=== PATIENT | female | born 1955 | race Caucasian/White ===

== ENCOUNTER → 2016-12-06 | Outpatient (CLI) | payer MEDICARE, BC ==
[~2016-12-06] MED LIST: ALPRAZOLAM2 MG PO; AMBIEN 10MG10 M1 PO; AMBIEN 10MG10 MG PO; AMBIEN10 MG PO; ASACOL HD800 MG PO; ASPIRIN 32325 MG/TAB PO; ASPIRIN E.C. 8181 MG PO; ATIVAN 2MG2 MG PO; ATIVAN2 MG PO; AVEENO ANTI-IT118 ML TP; C-PAP MACHINE; CALCIUM 600-D 61 TAB PO; CALCIUM600 M1 PO; CELEBREX200 MG PO; CEPHALEXIN500 M1 PO; COLACE 100100 MG/CAP PO; DEPLIN15 MG PO; DEPLIN7.5 MG PO; DOXEPIN100 MG; DOXYCYCLINE 10100 MG PO; FERREX 150150 MG PO; FISH OIL1 IU PO; FOLIC ACID 40400 MCG PO; FOLIC ACID0.4 MG PO; FOLIC ACID0.8 MG PO; GEODON 40MG40 MG PO; GEODON40 MG PO; GEODON80 MG PO; HUMIRA40 MG/0.1 SC; IMODIUM 2MG CAPS2 MG PO; L-METHYLFOLATE15 MG PO; MASON NATURAL1200 MG PO; MINIPRESS2 MG PO; MIRALAX PA17 GM/Dose PO; MOBIC15 MG PO; MONODOX100 PO; MULTIPLE VITAMI1 CAP PO; NITROSTAT0.4 MG/TAB SL; OCUVITE1 TA1 PO; PENTASA500 MG PO; PERCOCET 325 MG1 TA3 PO; PERCOCET 500 MG1 TAB PO; PRAZOSIN HCL1 MG PO; PRILOSEC 20MG20 MG PO; PRISTIQ 50 MG T50 MG PO; PRISTIQ50 M1 PO; PROTONIX20 MG PO; REFRESH DRY EYE15 ML OP; REFRESH PM1 OI1 OP; RESTASIS0.05% OP; ROZEREM 8MG TABL8 MG PO; ROZEREM8 MG PO; SAPHRIS10 MG SL; SAPHRIS5 MG; SINEQUAN 1100 MG/CAP PO; TOPROL XL 50MG50 MG PO; TOPROL XL50 MG PO; VITAMIN C500 MG PO; VITAMIND3 5000 PO; XANAX2 MG PO; ZANTAC 300300 MG PO; ZOCOR 40MG40 MG PO; ZOCOR40 MG PO; [UNRECOGNIZED DRUG - OTHER] OU; [UNRECOGNIZED DRUG - OTHER] PO
== END ==
LOC: COL.LAB 13:59
DX: Z11.59 Encounter for screening for other viral diseases (principal)

== ENCOUNTER → 2017-02-16 | Outpatient (CLI) | payer MEDICARE, BC | LOC: COL.LAB 08:44 | DX: Z11.59 Encounter for screening for other viral diseases (principal) ==

== ENCOUNTER → 2017-07-22 | Outpatient (CLI) | payer MEDICARE, BC | LOC: COL.RAD 12:26 | DX: H47.013 Ischemic optic neuropathy, bilateral (principal) | CPT/HCPCS: Q9967 ==

== ENCOUNTER → 2018-03-02 | Outpatient (CLI) | payer MEDICARE, BC ==
[~2018-03-02] MED LIST changes: +ANTIVERT 25MG25 MG PO; +NEURONTIN300 MG/CAP PO; +PRIL40 PO; +PROAMATINE 5MG T5 MG PO; +THERATEARS 0.60.6 ML OP
== END ==
LOC: COL.RAD 10:30
DX: S82.832A Other fracture of upper and lower end of left fibula, initial encounter for closed fracture (principal); M19.072 Primary osteoarthritis, left ankle and foot; M20.12 Hallux valgus (acquired), left foot

== ENCOUNTER 2018-05-03 08:00 | Outpatient (RCR) | payer MEDICARE, BC | END 2018-05-07 | disposition home or self-care (01) | LOC: WSPT | DX: S82.65XD Nondisplaced fracture of lateral malleolus of left fibula, subsequent encounter for closed fracture with routine healing (principal); S93.602D Unspecified sprain of left foot, subsequent encounter; S93.402D Sprain of unspecified ligament of left ankle, subsequent encounter; R29.898 Other symptoms and signs involving the musculoskeletal system; W10.1XXD Fall (on)(from) sidewalk curb, subsequent encounter; Z96.653 Presence of artificial knee joint, bilateral | CPT/HCPCS: G8978-GP; G8979-GP ==

== ENCOUNTER 2018-08-14 08:00 | Outpatient (RCR) | payer MEDICARE, BC | END 2018-08-16 | disposition home or self-care (01) | LOC: WSPT | DX: S82.65XD Nondisplaced fracture of lateral malleolus of left fibula, subsequent encounter for closed fracture with routine healing (principal); R29.898 Other symptoms and signs involving the musculoskeletal system; R29.6 Repeated falls | CPT/HCPCS: G8978-GP; G8979-GP ==

== ENCOUNTER 2018-08-24 17:00 | Emergency (ER) | payer MEDICARE, BC ==
[2007-09-14 14:40] VITALS: BP 140/80
[~2018-08-24] VITALS: Ht 177.8 cm; Wt 91.8 kg
[2018-08-24 17:09] VITALS: TEMP 98.4
[2018-08-24] MEDS ORDERED: LYRICA200 MG PO ×2 (17:33→17:34)
[2018-08-24] MEDS ORDERED: ASPIRIN 32325 MG/TAB PO (17:33)
[2018-08-24] MEDS ORDERED: HUMIRA40 MG/0.8 SQ (17:37)
[2018-08-24] MEDS ORDERED: PRIL40 PO (17:38)
[2018-08-24] MEDS ORDERED: XIIDRA1 EACH OP (17:46)
[2018-08-24 18:05] LABS: COLLECTION METHOD CLEAN CATCH
[2018-08-24 18:10] LABS: BASO % 0.6 % (0.0-2.0); EOS # 0.1 (0.0-0.7); EOS % 1.2 % (0-4.0); GRAN # 2.4 (1.4-6.5); GRAN % 49.2 % (42.2-75.2); HEMATOCRIT 43.7 % (37.0-47.0); HEMOGLOBIN 14.5 g/dl (12.5-16.0); LYMPH # 1.9 (1.2-3.4); LYMPH % 39.8 % (20.0-51.0); MEAN CELL VOLUME 94 fl (80.0-100.0); MEAN CORPUSCULAR HEMOGLOBIN 31 pg (27.0-31.0); MEAN CORPUSCULAR HGB CONC 33 g/dl (33.0-37.0); MEAN PLATELET VOLUME 10.9 fl (7.4-10.4); MONO # 0.4 (0.1-0.6); PLATELET COUNT 167 K/mm3 (130-400); RED BLOOD COUNT 4.67 M/mm3 (4.10-5.30); REDCELL DISTRIBUTION WIDTH-CV 12.8 % (11.5-14.5)
[2018-08-24 18:11] LABS: MUCOUS Present /lpf; PH 5 (5-8); SQUAMOUS EPITHELIAL None Seen /hpf; URINE APPEARANCE Clear; URINE BACTERIA Rare /hpf; URINE BILIRUBIN Negative (NEGATIVE); URINE BLOOD Negative (NEGATIVE); URINE COLOR Yellow; URINE GLUCOSE Negative (NEGATIVE); URINE KETONE Negative (NEGATIVE); URINE LEUKOCYTE ESTERASE Negative (NEGATIVE); URINE NITRATE Negative (NEGATIVE); URINE PROTEIN(semi-quant) Negative (NEGATIVE); URINE RBC 0-2 /hpf; URINE UROBILINOGEN Negative (NEGATIVE)
[2018-08-24 18:28] LABS: ALANINE AMINOTRANSFERASE 10 U/L (9-52); ALBUMIN 4.3 gm/dL (3.5-5.0); ALKALINE PHOSPHATASE 64 U/L (50-136); ANION GAP 9 mmol/L (7-16); AST,SGOT 37 U/L (15-37); BILIRUBIN,TOTAL 0.2 mg/dL (0.0-1.0); BLOOD UREA NITROGEN 17 mg/dL (7-17); C-REACTIVE PROTEIN < 0.5 mg/dL (0.0-0.9); CALCIUM 9.6 mg/dL (8.4-10.2); CARBON DIOXIDE 28 mmol/L (22-30); CHLORIDE 104 mmol/L (98-107); CREATININE, serum 0.89 mg/dL (0.52-1.25); GLUCOSE 105 mg/dL (74-106); POTASSIUM 4.5 mmol/L (3.4-5.0); SODIUM 141 mmol/L (137-145); TOTAL PROTEIN 7.8 gm/dL (6.4-8.2)
[2018-08-24] MEDS ORDERED: CEPHALEXIN500 M1 PO (18:34)
[2018-08-24] MEDS ORDERED: DOXYCYCLINE HY100 MG PO (18:34)
[2018-08-24] MEDS ORDERED: PERCOCET 325 MG1 TA2 PO (18:34)
[2018-08-24 18:35] LABS: ERYTHROCYTE SEDIMENTATION RATE 1 mm/hr (0-30)
[2018-08-24 18:50] VITALS: BP 133/84; PULSE 60
== END 2018-08-24 18:50 | disposition home or self-care (01) ==
LOC: COL.ER 17:00
PROVIDERS: Physician Assistant
DX: M79.89 Other specified soft tissue disorders (principal); G62.9 Polyneuropathy, unspecified; Z90.89 Acquired absence of other organs; Z95.1 Presence of aortocoronary bypass graft

== ENCOUNTER → 2018-09-04 | Outpatient (CLI) | payer MEDICARE, BC ==
[~2018-09-04] MED LIST changes: +DOXYCYCLINE HY100 MG PO; +HUMIRA40 MG/0.8 SQ; +LYRICA200 MG PO; +PERCOCET 325 MG1 TA2 PO; +XIIDRA1 EACH OP
[2018-09-04 16:31] LABS: URIC ACID 4.3 mg/dL (2.5-6.2)
[2018-09-04 16:33] LABS: C-REACTIVE PROTEIN < 0.5 mg/dL (0.0-0.9)
[2018-09-05 02:25] LABS: RHEUMATOID FACTOR-SCREEN <15 IU/mL (0-29)
[2018-09-06 01:41] LABS: ANA SCREEN with REFLEX Negative (Negative)
== END ==
LOC: COL.LAB 15:34
PROVIDERS: Orthopaedic Surgery Sports Medicine
DX: M79.671 Pain in right foot (principal); M79.672 Pain in left foot

== ENCOUNTER 2018-09-14 15:00 | Emergency (ER) | payer MEDICARE, BC ==
[2007-09-14 14:40] VITALS: BP 140/80
[~2018-09-14] VITALS: Ht 177.8 cm; Wt 90.9 kg
[2018-09-14 15:08] VITALS: TEMP 97.9
[2018-09-14] MEDS ORDERED: HUMIRA40 MG/0.8 SQ (15:26)
[2018-09-14 16:00] LABS: BASO % 0.7 % (0.0-2.0); EOS # 0.1 (0.0-0.7); EOS % 1.8 % (0-4.0); GRAN # 2.5 (1.4-6.5); GRAN % 54.3 % (42.2-75.2); HEMATOCRIT 41.5 % (37.0-47.0); HEMOGLOBIN 13.9 g/dl (12.5-16.0); LYMPH # 1.6 (1.2-3.4); LYMPH % 35.1 % (20.0-51.0); MEAN CELL VOLUME 93 fl (80.0-100.0); MEAN CORPUSCULAR HEMOGLOBIN 31 pg (27.0-31.0); MEAN CORPUSCULAR HGB CONC 34 g/dl (33.0-37.0); MEAN PLATELET VOLUME 10.4 fl (7.4-10.4); MONO # 0.4 (0.1-0.6); MONO % 7.9 % (1.7-9.3); PLATELET COUNT 155 K/mm3 (130-400); RED BLOOD COUNT 4.47 M/mm3 (4.10-5.30); REDCELL DISTRIBUTION WIDTH-CV 12.8 % (11.5-14.5)
[2018-09-14 16:10] LABS: CALCIUM 9.4 mg/dL (8.4-10.2); CREATININE, serum 0.88 (0.52-1.25); POTASSIUM 3.8 mmol/L (3.4-5.0)
[2018-09-14] MEDS ORDERED: PERCOCET 325 MG1 TAB PO (17:00)
[2018-09-14] MEDS ORDERED: FLEXERIL 1010 MG/TAB PO (17:00)
[2018-09-14] MEDS ORDERED: MEDROL 4MG DOSPA4 MG PO (17:00)
[2018-09-14 17:42] VITALS: BP 126/83; PULSE 60
== END 2018-09-14 17:44 | disposition home or self-care (01) ==
LOC: COL.ER 15:00
PROVIDERS: Emergency Medicine
DX: S33.9XXA Sprain of unspecified parts of lumbar spine and pelvis, initial encounter (principal); S70.01XA Contusion of right hip, initial encounter; M54.5 Low back pain; I25.10 Atherosclerotic heart disease of native coronary artery without angina pectoris; Z95.1 Presence of aortocoronary bypass graft; I10 Essential (primary) hypertension; G89.29 Other chronic pain; Z79.82 Long term (current) use of aspirin; W19.XXXA Unspecified fall, initial encounter; Y92.009 Unspecified place in unspecified non-institutional (private) residence as the place of occurrence of the external cause
CPT/HCPCS: J1170; J2060; J2405; J7030; Q9967

== ENCOUNTER 2018-09-20 12:37 | Day surgery (SDC) | payer MEDICARE, BC ==
[2007-09-14 14:40] VITALS: BP 140/80
[~2018-09-20] VITALS: Ht 177.8 cm; Wt 92.5 kg
[~2018-09-20 12:37] MED LIST changes: +FLEXERIL 1010 MG/TAB PO; +MEDROL 4MG DOSPA4 MG PO; +PERCOCET 325 MG1 TAB PO
[2018-09-20] MEDS ORDERED: TOPROL XL 50MG50 MG PO (13:24)
[2018-09-20 14:48] VITALS: BP 150/103; PULSE 60; TEMP 98.1
[2018-09-20 16:45] VITALS: BP 158/93; PULSE 60; TEMP 97.5
--- NOTE | 2018-09-20 16:45 | NUR ---
The patient arrived back to [facility] from the [facility] suite at this time. The patient appears drowsy but ambulated from the cart to the recliner in her room with the stand by assistance of two nurses. The patient's post procedure vital signs were started at this time. The patient requests to try some diet cola at this time. Call light is within reach. Will continue to monitor the patient.
[2018-09-20 17:00] VITALS: BP 133/75; PULSE 71
--- NOTE | 2018-09-20 17:00 | NUR ---
The patient appears to be tolerating the cola well and requests to try a muffin at this time. Vital signs appear stable. Will continue to monitor the patient.
[2018-09-20 17:15] VITALS: BP 168/91; PULSE 60
--- NOTE | 2018-09-20 17:15 | NUR ---
The patient's IV to her right anecubital was removed and a pressure dressing was applied to the site. The nurse instructed the patient to get dressed and notify the staff when she is ready to be escorted out.
--- NOTE | 2018-09-20 17:25 | NUR ---
Discharge instructions were reviewed with the patient at this time. She verbablized understanding and any questions were answered at this time. The patient is dressed and ready to be escorted out.
--- NOTE | 2018-09-20 17:30 | NUR ---
The patient was escorted out via wheelchair to a private vehicle by ANJANA Gallagher. The patient's belongings and discharge paperwork were sent with her. The patient's friend, Rosa, is present to drive her home.
== END 2018-09-20 17:30 | disposition home or self-care (01) ==
LOC: SDCO 12:37
DX: K21.9 Gastro-esophageal reflux disease without esophagitis (principal); I25.10 Atherosclerotic heart disease of native coronary artery without angina pectoris; I50.1 Left ventricular failure, unspecified; Z95.5 Presence of coronary angioplasty implant and graft; G47.33 Obstructive sleep apnea (adult) (pediatric); F43.10 Post-traumatic stress disorder, unspecified; F31.9 Bipolar disorder, unspecified; G89.29 Other chronic pain; K58.2 Mixed irritable bowel syndrome; Z79.899 Other long term (current) drug therapy; Z79.82 Long term (current) use of aspirin; Z95.0 Presence of cardiac pacemaker; I73.00 Raynaud's syndrome without gangrene; K31.84 Gastroparesis; Z98.51 Tubal ligation status; Z90.49 Acquired absence of other specified parts of digestive tract; Z85.9 Personal history of malignant neoplasm, unspecified; N28.1 Cyst of kidney, acquired
CPT/HCPCS: J2704; J7030

== ENCOUNTER 2018-10-12 08:00 | Outpatient (RCR) | payer MEDICARE, BC | END 2018-10-12 09:57 | disposition home or self-care (01) | LOC: WSPT 08:00 | DX: Z47.89 Encounter for other orthopedic aftercare (principal); S82.65XD Nondisplaced fracture of lateral malleolus of left fibula, subsequent encounter for closed fracture with routine healing; R53.1 Weakness; W19.XXXD Unspecified fall, subsequent encounter; Z98.890 Other specified postprocedural states ==